=== PATIENT | female | born 1965 | race Caucasian/White ===

== ENCOUNTER → 2016-12-05 08:51 | Outpatient (CLI) | payer BC | END | disposition home or self-care (01) | LOC: D.RAD 08:51 | DX: K31.84 Gastroparesis (principal) ==

== ENCOUNTER → 2016-12-28 08:46 | Day surgery (SDC) | payer BC ==
[~2016-12-28] VITALS: Ht 165.1 cm; Wt 79.4 kg
[~2016-12-28 08:46] MED LIST: BENADRYL25 MG PO; BIOTIN5 MG PO; EMBEDA ER 50-21 EACH PO; ESTRACE 0.0142.5 GM VG; GEMFIBROZIL600 MG PO; IMITREX100 MG PO; INDERAL LA120 MG PO; JANUMET 50-5001 TAB PO; MAG-OXIDE400 MG PO; MIRALAX17 GM PO; NEURONTIN 300300 MG PO; PHENERGAN25 M1 PO; PROTONIX40 MG PO
[2016-12-28 09:40] LABS: EOSINOPHILS 3.8 % (0-7); HEMATOCRIT 34.4 % (36.0-48.0); HEMOGLOBIN 11.5 g/dL (12-16); IMMATURE GRANULOCYTES 0.4 % (0-5); LYMPHOCYTES 38.6 % (15-50); MCH 31.6 pg (26.0-34.0); MCHC 33.4 g/dL (31.0-37.0); MCV 94.5 fL (80.0-100.0); MEAN PLATELET VOLUME 12.2 fL (7.4-10.4); MONOCYTES 8.6 % (2-11); NEUTROPHILS 47.6 % (40-80); PLATELET COUNT 243 10x3/uL (130-400); RBC 3.64 10x6/uL (4.00-5.40); RDW 14.1 % (11.5-14.5)
[2016-12-28 09:50] LABS: CALC OSMOLALITY 289 mosm/kg (275-300); CALCIUM 9.2 mg/dL (8.5-10.1); CARBON DIOXIDE 28.8 mmol/L (21.0-32.0); CHLORIDE - SERUM 106 mmol/L (98-107); CREATININE - SERUM 0.8 mg/dL (0.6-1.3); GLUCOSE 182 mg/dL (74-106); POTASSIUM - SERUM 3.7 mmol/L (3.5-5.1); SODIUM 144 mmol/L (136-145); UREA NITROGEN 7 mg/dL (7-18); eGFR NON AFRICAN AMERICAN 80 mL/min (90-120)
[2016-12-28 09:55] LABS: HCG SERUM NEGATIVE (NEGATIVE)
[2016-12-28 10:16] VITALS: BP 107/66; Ht 165.1 cm; Wt 79.4 kg
[2016-12-28 11:10] LABS: HCG URINE NEGATIVE (NEGATIVE)
--- NOTE | 2016-12-28 15:59 | NUR ---
1324 PT ESCORTED OUT WITH .
== END | disposition home or self-care (01) ==
LOC: D.OPS 08:46
PROVIDERS: Anesthesiology; Surgery
DX: R13.10 Dysphagia, unspecified (principal); K21.9 Gastro-esophageal reflux disease without esophagitis; Z98.890 Other specified postprocedural states; Z01.812 Encounter for preprocedural laboratory examination

== ENCOUNTER → 2017-01-09 14:28 | Outpatient (CLI) | payer BC ==
[2016-12-28 10:16] VITALS: BMI 29.1
[2017-01-09 15:10] LABS: EOSINOPHILS 3.4 % (0-7); HEMATOCRIT 35.3 % (36.0-48.0); IMMATURE GRANULOCYTES 0.2 % (0-5); LYMPHOCYTES 32.8 % (15-50); MCH 31.9 pg (26.0-34.0); MCV 93.9 fL (80.0-100.0); MEAN PLATELET VOLUME 11.8 fL (7.4-10.4); MONOCYTES 8.2 % (2-11); NEUTROPHILS 54.4 % (40-80); PLATELET COUNT 270 10x3/uL (130-400); RBC 3.76 10x6/uL (4.00-5.40); RDW 13.4 % (11.5-14.5); WBC 5.3 10x3/uL (4.8-10.8)
[2017-01-09 16:14] LABS: ALBUMIN 3.6 g/dL (3.4-5.0); ANION GAP 16.9 mmol/L (8-16); BILIRUBIN - TOTAL 0.49 mg/dL (0.2-1.3); CHOL - HDL RATIO 4.7 ratio (2.3-4.1); CREATININE - SERUM 0.9 mg/dL (0.6-1.3); LDL-HDL RATIO 2.8 ratio (1.5-3.5); POTASSIUM - SERUM 3.9 mmol/L (3.5-5.1); PROTEIN - SERUM 7.3 g/dL (6.4-8.2)
[2017-01-10 09:15] LABS: FOLATE (FOLIC ACID) - SERUM 15.9 ng/mL (>3.0)
[2017-01-10 10:18] LABS: VITAMIN D 25 HYDROXY 28.9 ng/mL (30.0-100.0)
== END | disposition home or self-care (01) ==
LOC: D.LAB 08:00
PROVIDERS: Surgery
DX: Z98.84 Bariatric surgery status (principal)

== ENCOUNTER → 2017-01-17 08:34 | Outpatient (CLI) | payer BC ==
[2016-12-28 10:16] VITALS: BMI 29.1
== END | disposition home or self-care (01) ==
LOC: D.NM 08:34
DX: Z98.84 Bariatric surgery status (principal)

== ENCOUNTER 2017-09-12 10:00 | Outpatient (CLI) | payer BC ==
[2016-12-28 10:16] VITALS: BMI 29.1
== END 2017-09-12 12:00 ==
LOC: D.OPS 10:00
DX: Z98.84 Bariatric surgery status (principal)

== ENCOUNTER 2017-11-07 08:51 | Inpatient (IN) | payer BC ==
[~2017-11-07] VITALS: Ht 165.1 cm; Wt 74.1 kg
[2017-11-07] MEDS ORDERED: OMEPRAZOLE40 MG PO (10:31)
[2017-11-07] MEDS ORDERED: ZOFRAN4 MG PO (10:31)
[2017-11-07 11:18] LABS: ANION GAP 15.1 mmol/L (8-16); CALCIUM 9.6 mg/dL (8.5-10.1); CARBON DIOXIDE 25.9 mmol/L (21.0-32.0); CREATININE - SERUM 1.4 mg/dL (0.6-1.3)
[2017-11-07 11:28] LABS: HEMATOCRIT 31.1 % (36.0-48.0); MCHC 35.4 g/dL (31.0-37.0); MCV 87.6 fL (80.0-100.0); MEAN PLATELET VOLUME 12.3 fL (7.4-10.4); RBC 3.55 10x6/uL (4.00-5.40); RDW 12.9 % (11.5-14.5); WBC 4.6 10x3/uL (4.8-10.8)
[2017-11-09 01:33] VITALS: BP 96/65; Ht 165.1 cm; Wt 74.1 kg
[2017-11-09 04:45] VITALS: BP 103/64
[2017-11-09 06:17] LABS: BASOPHILS 0 % (0-2); EOSINOPHILS 1.1 % (0-7); HEMATOCRIT 27.7 % (36.0-48.0); HEMOGLOBIN 9.2 g/dL (12-16); IMMATURE GRANULOCYTES 0.2 % (0-5); LYMPHOCYTES 10.2 % (15-50); MCH 30.5 pg (26.0-34.0); MCHC 33.2 g/dL (31.0-37.0); MEAN PLATELET VOLUME 12.6 fL (7.4-10.4); MONOCYTES 6.9 % (2-11); NEUTROPHILS 81.6 % (40-80); PLATELET COUNT 191 10x3/uL (130-400); RBC 3.02 10x6/uL (4.00-5.40); RDW 13.3 % (11.5-14.5)
[2017-11-09 06:32] LABS: MCV 91.7 fL (80.0-100.0); WBC 6.3 10x3/uL (4.8-10.8)
[2017-11-09 06:44] LABS: ALBUMIN 2.6 g/dL (3.4-5.0); ANION GAP 14.8 mmol/L (8-16); BILIRUBIN - TOTAL 0.3 mg/dL (0.2-1.3); CALCIUM 8.4 mg/dL (8.5-10.1); CARBON DIOXIDE 23.4 mmol/L (21.0-32.0); CREATININE - SERUM 1.1 mg/dL (0.6-1.3); POTASSIUM - SERUM 4.2 mmol/L (3.5-5.1); PROTEIN - SERUM 5.8 g/dL (6.4-8.2)
[2017-11-09] MEDS ORDERED: HYDROCODON-ACE1 EAC7 PO (11:00)
[2017-11-09] MEDS ORDERED: MILK OF MAGNESI30 ML PO (11:01)
[2017-11-09 13:18] VITALS: BP 95/43
== END 2017-11-09 14:41 | disposition home or self-care (01) | DRG 328 ==
LOC: D.SDCHOLD 08:51 → D.OPS 11-08 08:00 → D.PAN 11-08 08:00 → EDSTATUS 11-08 08:00 → D.SDCHOLD 11-08 08:00 → D.MS 11-08 08:31 → D.SDCHOLD 11-08 08:31 → D.MS 11-08 14:51
PROVIDERS: Anesthesiology; Surgery
PROC: 0DV44CZ Restriction of Esophagogastric Junction with Extraluminal Device, Percutaneous Endoscopic Approach (ICD-10-PCS; principal; 2017-11-08 10:00)
PROC: 0BQT4ZZ Repair Diaphragm, Percutaneous Endoscopic Approach (ICD-10-PCS; 2017-11-08 10:00)
DX: K21.0 Gastro-esophageal reflux disease with esophagitis (principal); K44.9 Diaphragmatic hernia without obstruction or gangrene; R13.10 Dysphagia, unspecified; E11.9 Type 2 diabetes mellitus without complications

== ENCOUNTER 2017-12-19 07:51 | Inpatient (IN) | payer BC ==
[~2017-12-19] VITALS: Ht 165.1 cm; Wt 68.0 kg
[~2017-12-19 07:51] MED LIST changes: +HYDROCODON-ACE1 EAC7 PO; +MILK OF MAGNESI30 ML PO; +OMEPRAZOLE40 MG PO; +VIBERZI PO; +ZOFRAN4 MG PO
[2017-12-19 08:37] LABS: APPEARANCE CLEAR (CLEAR); BILIRUBIN 3+ (NEGATIVE); COLOR YELLOW (YELLOW); GLUCOSE NEGATIVE (NEGATIVE); KETONE LARGE mg/dL (NEGATIVE); NITRITE NEGATIVE (NEGATIVE); PROTEIN TRACE mg/dL (NEGATIVE); SPECIFIC GRAVITY 1.025 (1.005-1.020); UROBILINOGEN NORMAL (NORMAL); WHITE CELLS - URINE OCC /hpf (0-5)
[2017-12-19 08:38] LABS: BACTERIA FEW /hpf (NONE SEEN); EPITHELIAL CELLS 0-5 /hpf (0-5); MUCUS <1+ /lpf (NONE SEEN)
[2017-12-19 09:02] LABS: ALBUMIN 4.1 g/dL (3.4-5.0); ANION GAP 26.8 mmol/L (8-16); BILIRUBIN - TOTAL 0.58 mg/dL (0.2-1.3); CARBON DIOXIDE 18.5 mmol/L (21.0-32.0); CREATININE - SERUM 1.2 mg/dL (0.6-1.3); POTASSIUM - SERUM 3.3 mmol/L (3.5-5.1); PROTEIN - SERUM 8.2 g/dL (6.4-8.2)
[2017-12-19 09:10] LABS: AMYLASE - SERUM 12 U/L (25-115); LIPASE 56 U/L (73-393)
[2017-12-19 09:14] LABS: EOSINOPHILS 2.2 % (0-7); HEMOGLOBIN 11.8 g/dL (12-16); IMMATURE GRANULOCYTES 0.5 % (0-5); LYMPHOCYTES 25.8 % (15-50); MCH 31.4 pg (26.0-34.0); MCHC 35.8 g/dL (31.0-37.0); MCV 87.8 fL (80.0-100.0); MEAN PLATELET VOLUME 12.6 fL (7.4-10.4); MONOCYTES 8.2 % (2-11); NEUTROPHILS 62.3 % (40-80); RBC 3.76 10x6/uL (4.00-5.40); WBC 6.2 10x3/uL (4.8-10.8)
[2017-12-19 09:17] LABS: PLATELET COUNT 235 10x3/uL (130-400)
[2017-12-19 14:00] VITALS: BP 104/58
[2017-12-19 21:34] VITALS: BP 100/45
[2017-12-20] VITALS (7 sets, daily range): BP systolic 99–117; BP diastolic 43–65; Ht 165.1 cm; Wt 68.0 kg
[2017-12-20 06:03] LABS: BASOPHILS 0.7 % (0-2); EOSINOPHILS 2.9 % (0-7); HEMATOCRIT 28.2 % (36.0-48.0); HEMOGLOBIN 9.7 g/dL (12-16); IMMATURE GRANULOCYTES 0.2 % (0-5); LYMPHOCYTES 34.8 % (15-50); MCH 30.5 pg (26.0-34.0); MCHC 34.4 g/dL (31.0-37.0); MCV 88.7 fL (80.0-100.0); MEAN PLATELET VOLUME 12.8 fL (7.4-10.4); MONOCYTES 10.9 % (2-11); NEUTROPHILS 50.5 % (40-80); PLATELET COUNT 197 10x3/uL (130-400); RBC 3.18 10x6/uL (4.00-5.40); RDW 15.1 % (11.5-14.5)
[2017-12-20 06:18] LABS: ANION GAP 15.4 mmol/L (8-16); MAGNESIUM - SERUM 1.4 mg/dL (1.8-2.4); PHOSPHOROUS 2.2 mg/dL (2.5-4.9)
[2017-12-20 06:24] LABS: CARBON DIOXIDE 23.6 mmol/L (21.0-32.0)
[2017-12-20 06:35] LABS: WBC 4.5 10x3/uL (4.8-10.8)
[2017-12-20 14:21] LABS: % SATURATION 20 % (15-55); IRON 49 ug/dl (35-150); TOTAL IRON BIND CAPACITY 243 ug/dl (260-445); UNSAT IRON BIND CAPACITY 194 ug/dl (150-375)
[2017-12-21 04:00] VITALS: BP 98/62
[2017-12-21 06:48] LABS: BASOPHILS 0.9 % (0-2); EOSINOPHILS 5.2 % (0-7); HEMATOCRIT 29.2 % (36.0-48.0); LYMPHOCYTES 40.7 % (15-50); MCH 31.1 pg (26.0-34.0); MCHC 34.2 g/dL (31.0-37.0); MEAN PLATELET VOLUME 12.8 fL (7.4-10.4); MONOCYTES 9.3 % (2-11); NEUTROPHILS 43.9 % (40-80); PLATELET COUNT 182 10x3/uL (130-400); RBC 3.22 10x6/uL (4.00-5.40); RDW 15.4 % (11.5-14.5); WBC 3.4 10x3/uL (4.8-10.8)
[2017-12-21 06:57] LABS: ANION GAP 15.2 mmol/L (8-16); CALCIUM 9.2 mg/dL (8.5-10.1); CARBON DIOXIDE 25.3 mmol/L (21.0-32.0); MAGNESIUM - SERUM 1.3 mg/dL (1.8-2.4); MCV 90.7 fL (80.0-100.0); POTASSIUM - SERUM 3.5 mmol/L (3.5-5.1)
[2017-12-21 08:37] VITALS: BP 115/66
[2017-12-21 12:02] VITALS: BP 130/69
[2017-12-21 16:25] VITALS: BP 112/73
[2017-12-21 20:00] VITALS: BP 97/53
[2017-12-22] VITALS: BP 99/59
[2017-12-22 04:00] VITALS: BP 119/66
[2017-12-22 06:37] LABS: BASOPHILS 0.6 % (0-2); EOSINOPHILS 2.4 % (0-7); HEMOGLOBIN 9.8 g/dL (12-16); LYMPHOCYTES 29.8 % (15-50); MCH 30.9 pg (26.0-34.0); MCHC 33.8 g/dL (31.0-37.0); MCV 91.5 fL (80.0-100.0); MEAN PLATELET VOLUME 13.1 fL (7.4-10.4); MONOCYTES 8.3 % (2-11); NEUTROPHILS 58.9 % (40-80); PLATELET COUNT 173 10x3/uL (130-400); RBC 3.17 10x6/uL (4.00-5.40); RDW 15.6 % (11.5-14.5); WBC 3.4 10x3/uL (4.8-10.8)
[2017-12-22 06:53] LABS: ANION GAP 10.8 mmol/L (8-16); CALCIUM 8.8 mg/dL (8.5-10.1); CARBON DIOXIDE 26.4 mmol/L (21.0-32.0)
[2017-12-22 07:04] LABS: MAGNESIUM - SERUM 1.7 mg/dL (1.8-2.4); POTASSIUM - SERUM 4.2 mmol/L (3.5-5.1)
[2017-12-22 08:58] VITALS: BP 117/73
[2017-12-22 09:15] LABS: FOLATE (FOLIC ACID) - SERUM 5.6 ng/mL (>3.0)
[2017-12-22] MEDS ORDERED: PREDNISONE10 MG PO (13:24)
== END 2017-12-22 20:16 | disposition home or self-care (01) | DRG 392 ==
LOC: D.ER 07:51 → D.EDHOLD 13:13 → D.MS 13:13
PROVIDERS: Family Medicine; Internal Medicine Nephrology
DX: R11.2 Nausea with vomiting, unspecified (principal); R10.9 Unspecified abdominal pain; K22.4 Dyskinesia of esophagus; E83.42 Hypomagnesemia; E87.6 Hypokalemia; K29.50 Unspecified chronic gastritis without bleeding; D50.9 Iron deficiency anemia, unspecified; K21.0 Gastro-esophageal reflux disease with esophagitis; E11.43 Type 2 diabetes mellitus with diabetic autonomic (poly)neuropathy; K31.84 Gastroparesis; R19.7 Diarrhea, unspecified

== ENCOUNTER → 2018-02-15 09:36 | Outpatient (CLI) | payer BC ==
[2017-12-20 13:48] VITALS: BMI 24.9
[~2018-02-15 09:36] MED LIST changes: +PREDNISONE10 MG PO
== END | disposition home or self-care (01) ==
LOC: D.US 09:36
DX: R74.8 Abnormal levels of other serum enzymes (principal)